=== PATIENT | male | born 1990 | race Caucasian/White ===

== ENCOUNTER → 2021-10-19 | Outpatient (CLI) | payer OTHER ==
[~2021-10-19] MED LIST: IBUPROFEN600 MG PO; NORFLEX 100 MG100 MG PO; PERCOCET 5/325 T1 EA PO; PREDNISONE 50 M50 MG PO; Voltaren Gel 1 % TOP
== END ==
LOC: US 10:15
DX: D69.9 Hemorrhagic condition, unspecified (principal)
CPT/HCPCS: 76700